=== PATIENT | male | born 1945 | race Caucasian/White ===

== ENCOUNTER 2024-04-09 16:52 | Inpatient (IN) | payer OTHER ==
[2024-04-09 19:22] VITALS: BMI 27.2
[2024-04-09] MEDS ORDERED: ALPRAZOLAM 0.25 MG TABLET PO PRN (19:36)
[2024-04-09] MEDS ORDERED: ALBUTEROL 2.5 MG/3 ML NEB SOL NEB PRN (19:36)
[2024-04-09] MEDS: FAMOTIDINE 20 MG TAB PO SCH (20:00)
[2024-04-09] MEDS ORDERED: MELATONIN 3 MG TABLET PO PRN (20:10)
[2024-04-09] MEDS ORDERED: SIMETHICONE 80 MG CHEWABLE TAB PO PRN (20:10)
[2024-04-09] MEDS: INSULIN REGULAR (HUMAN) 100 UNIT/ML SQ SCH (20:46)
[2024-04-09] MEDS: TOLVAPTAN 15 MG PO SCH (20:47)
[2024-04-09] MEDS: TRAZODONE 50 MG TABLET PO SCH (20:48)
[2024-04-09] MEDS: ROPINIROLE HCL 1 MG TAB PO SCH (20:48)
[2024-04-09] MEDS: ROSUVASTATIN 10 MG TAB PO SCH (20:49)
[2024-04-09] MEDS: HYDROCODONE/APAP 10/325 TAB PO PRN (20:49)
[2024-04-09] MEDS: HYDRALAZINE HCL 25 MG TABLET PO SCH (20:49)
[2024-04-09] MEDS: AMITRIPTYLINE 50 MG TAB PO SCH (20:49)
[2024-04-09] MEDS: APIXABAN 2.5 MG TABLET PO SCH (20:49)
[2024-04-09] MEDS ORDERED: ALPRAZOLAM 0.25 MG TABLET ONE (21:25)
[2024-04-09] MEDS: TAMSULOSIN 0.4 MG SR CAP PO SCH (21:40)
[2024-04-09] MEDS: ALPRAZOLAM 0.25 MG TABLET PO SCH (21:40)
[2024-04-09] MEDS ORDERED: DIPHENHYDRAMINE 25 MG TAB/CAP PO PRN (21:48)
[2024-04-10 04:19] LABS: Renal Epithelial <5 /HPF (None Seen); Specific Gravity 1.007 (1.005-1.030); Sqamous Epithelial None Seen /HPF (None Seen); Transitional Epithelial <5 /HPF (None Seen); Urine Bacteria None Seen /HPF (<20); Urine Bilirubin NEGATIVE (Negative); Urine Blood Negative (Negative); Urine Clarity Clear (Clear); Urine Color Light-Yellow (Yellow); Urine Culture Reflex Order NOT NEEDED; Urine Glucose NEGATIVE (Negative); Urine Ketones NEGATIVE (Negative); Urine Micro Reflex YN NO BILL MICROSCOPIC; Urine Nitrite NEGATIVE (Negative); Urine Protein NEGATIVE (Negative); Urine RBC <5 /HPF (None Seen); Urine Urobilinogen Normal (Normal); Urine WBC <5 /HPF (<5); Urine WBC Clump Rare /HPF (None Seen)
[2024-04-10 06:16] LABS: Absolute Basophils 0.1 K/uL (0-0.5); Absolute Eosinophils 1.9 K/uL (0-0.5); Absolute Lymphocytes (CBC) 1.2 K/uL (0.7-4.9); Absolute Monocytes 0.7 K/uL (0.1-1.3); Absolute Neutrophil 3.3 K/uL (1.8-8.0); Basophils % 1.2 % (0-1.3); Eosinophils % 26.1 % (0-4.4); Hematocrit 33.1 % (39.6-49.0); Hemoglobin 10.8 g/dL (13.6-17.9); Lymphocytes % 17.3 % (15.3-44.8); MCH 27.8 pg (27.0-35.0); MCHC 32.6 g/dL (32.0-36.0); MCV 85.3 fL (80-100); MPV 7.8 fL (7.6-11.3); Monocytes % 9.2 % (3.3-12.3); Neutrophils % 46.2 % (41.7-73.7); Platelets 335 thou/uL (152-406); RBC Red Blood Cell Count 3.88 M/uL (4.33-5.43); Red Cell Distribution Width 15.2 % (12.1-15.2)
[2024-04-10 06:49] LABS: Albumin 2.7 g/dL (3.4-5.0); Anion Gap 7.3 mEq/L (5.0-15.0); Magnesium 1.7 mg/dL (1.6-2.4); Potassium 3.3 mEq/L (3.5-5.1); Prealbumin 13.8 mg/dL (20-40)
[2024-04-10 07:38] LABS: Differential Total Cells Count 100; Segmented Neutrophils 52 % (40-80)
[2024-04-10 07:40] LABS: Atypical Lymphocytes 1 %; Band Neutrophils 1 % (0-1); Blood Morphology Comment NOT SEEN (NOT SEEN); Eosinophils 18 % (0-3); Lymphocytes 21 % (15-42); Monocytes 3 % (0-10); Platelet Estimate ADEQ
[2024-04-10] MEDS: PANTOPRAZOLE 40MG TABLET PO SCH (07:53)
[2024-04-10] MEDS: LEVOTHYROXINE SOD 0.125 MG TAB PO SCH (07:53)
[2024-04-10] MEDS ORDERED: modafiniL 100 MG TAB PO SCH (08:00)
[2024-04-10] MEDS: DONEPEZIL HCL 5 MG TAB PO SCH (08:24)
[2024-04-10] MEDS: POTASSIUM CL SA 10 MEQ TAB PO SCH (08:24)
[2024-04-10] MEDS: SODIUM CHLORIDE 1 GM TAB PO SCH (08:25)
[2024-04-10] MEDS: Multi-VIT(Centravite Senior) 1 TAB TAB PO SCH (08:25)
[2024-04-10] MEDS: FENOFIBRATE 160 MG TAB PO SCH (08:28)
[2024-04-10] MEDS: SPIRONOLACTONE 25 MG TABLET PO SCH (08:28)
[2024-04-10] MEDS: glipiZIDE 5 MG TAB PO SCH (08:28)
[2024-04-10] MEDS: MEMANTINE HCL 10 MG TABLET PO SCH (08:28)
[2024-04-10] MEDS: AMLODIPINE 5 MG TAB PO SCH (08:29)
[2024-04-10] MEDS: MAGNESIUM OXIDE 400 MG TAB PO SCH (08:29)
[2024-04-10] MEDS: MICONAZOLE 2% TOPICAL 15 GM TOP SCH (08:30)
[2024-04-10] MEDS: HYDRALAZINE HCL 25 MG TABLET PO SCH (09:34)
[2024-04-10] MEDS: modafiniL 100 MG TAB PO SCH (09:35)
[2024-04-10] MEDS: LIDOCAINE 4% PATCH TOP SCH (10:05)
[2024-04-10] MEDS: FLU (Fluarix Triv) TS24-25(6MOS UP)/PF 45 MCG/0.5 ML Syringe IM ONE (13:00)
[2024-04-10] MEDS ORDERED: hydrOXYzine HCL 25 MG TAB PO SCH (14:00)
[2024-04-10] MEDS: CALAMINE LOTION 180ML TOP SCH (14:22)
--- NOTE | 2024-04-10 16:30 | RAD REPORT ---
Exam:Knee Left 2 View HISTORY: Left knee pain FINDINGS: No fracture or dislocation seen Osteoporosis. Chondrocalcinosis. Vascular calcifications are present. No significant joint effusion seen. Limited two-view series obtained
[2024-04-10] MEDS ORDERED: GABAPENTIN 100 MG CAP PO SCH (20:00)
[2024-04-10] MEDS: ENSURE HIGH PROTEIN 237 ML CAN PO SCH (20:00)
[2024-04-10] MEDS: JUVEN PACKET PO SCH (20:00)
[2024-04-10] MEDS: GABAPENTIN 300 MG CAP PO SCH (20:22)
[2024-04-10] MEDS: DIPHENHYDRAMINE 25 MG TAB/CAP PO PRN (20:24)
--- NOTE | 2024-04-11 06:22 | HP ---
Date of Admission: 04/09/2024 Time Of Service: 1 p.m. Chief Complaint: "I had bowel problems, I broke my leg, I need to get better." History Of Present Illness: Mr. Adam is a 78-year-old patient who fell on 12/19/2023, injuring the left lower extremity and was found to have a tibiofibular fracture. He was admitted to [facility], where he had an external fixator placed for 2 weeks due to displ acement of the fracture. On 01/11/2024, he had an internal repair done. He was sent to SNF and whil e there, he progressed to weightbearing as tolerated with a walking boot. During time at SNF, he was noted to have constipation, abdominal distention, and pain. He was admitted to [facility] an d workup showed an ileus. He had abdominal distention in addition to his comorbidities, essential hy pertension, atrial fibrillation, hyponatremia. The General Surgery Service evaluated the patient and recommended conservative management. The patient had issues of dysphagia and evaluation by Speech, recommended a dysphagia diet versus PEG tube placement, and the patient was seen by Nephrology and al so had pressure ulcers addressed by Wound Care. He did have a PEG tube placed. He has course compli cated by of course a walking goals, lack of endurance and mobility and poor nutrition due to inadequa te PEG tube feedings with his dysphagia, nausea, vomiting, and diarrhea. Prior to the patient's fall , he was fully independent with mobility, activities of daily living, and ambulated without an assist ezio device. He performed his own cooking, cleaning, and drove occasionally without difficulty. Curr ently working hard to increase his tolerance, his balance, ambulation, coordination. Requires minimu m to contact guard assistance for those activities due to some pain in the left lower extremity and p ain in the knee. He uses a walker. He is now admitted to the inpatient rehabilitation unit. Discha rge is prior level of functioning and to reduce chance of rehospitalization. Medical And Surgical History: Hypertension, atrial fibrillation, PEG tube placement in March of t his year. Allergies: CURLY INHIBITORS, FENTANYL, LINEZOLID, RANOLAZINE, AND ZOLPIDEM. Imaging: Chest x-ray done on 04/02/2024 shows no acute abnormalities. Chest, abdomen, pelvis CT sca n on 04/02 shows diffuse distention of large and small bowel loops with gas, which could indicate an ileus. Moderate rectosigmoid fecal retention. KUB on 04/03 shows mild dilatation of the colon, air present throughout the nondilated small bowel. They may represent an adynamic ileus. Percutaneous t ube overlies the stomach, postsurgical changes in the lumbar spine. Small bowel x-ray on 04/04 shows normal small bowel series with overall normal small bowel caliber. Head CT scan on 04/06 shows no e vidence of acute intracranial abnormalities. Chest, abdomen, and pelvis CT done on 04/08 shows no ac [place] process, no adverse changes when compared to the study done on 04/02/2024. Medications: [place] 10/325 every 6 hours as needed, albuterol nebulizer 2.5 mg every 4 hours as neede d, Xanax 0.5 mg at bedtime, Elavil 50 mg at bedtime, Norvasc 5 mg daily, Eliquis 2.5 mg twice daily, calamine phenol lotion applied topically 3 times daily, diphenhydramine 25 mg at bedtime, donepezil 5 mg daily, Drisdol that is vitamin D 5000 units daily, TriCor 160 mg daily, gabapentin 300 mg twice d aily, glipizide 5 mg at breakfast, Apresoline 25 mg 3 times daily, Atarax 25 mg every 6 hours as need ed, Bud 1 packet twice daily, Synthroid 0.125 mg daily, magnesium oxide 400 mg twice daily, melaton in 3 mg at bedtime, Namenda 5 mg twice daily, modafinil 100 mg daily, Centrum Silver 1 tablet daily, melatonin 3 mg at night for insomnia, Ensure Enlive 237 mL twice daily, Protonix 40 mg daily, potassi um 20 mEq daily, Requip 4 mg at bedtime, Crestor 10 mg at bedtime, Mylicon 80 mg every 4 hours as nee ded, sodium chloride tablets 1 g twice daily, Aldactone 25 mg daily, Flomax 0.4 mg at bedtime, Ultram 50 mg 6 hours as needed, trazodone 50 mg at bedtime. Laboratory Studies: White blood cell count is 7.2, hemoglobin 10.8, hematocrit 33.1, platelets 335. Sodium 131, potassium 3.3, chloride 99, carbon dioxide 28, BUN 4, creatinine 0.86, glucose ranged fr om 106 to 173. Hemoglobin A1c is 7.5. Calcium 10.0, magnesium 1.7, albumin 2.7, prealbumin 13.8. U rinalysis is completely normal. A more recent chest x-ray just done at 4 p.m. today shows no fractur e or dislocation. He has osteoporosis, chondrocalcinosis. Vascular calcification present. No signi ficant joint effusion, limited 2 view series obtained as noted. Family History: Noncontributory. Social History: No alcohol, tobacco, or drug use. Review of Systems: There is some moderate pain in the left lower extremity where he has a tib-fib fracture, the leg is i n a boot. Some difficulty with not having regular bowel movements as of yet, and also he does have a rash in the back. There is some itching, red areas blanchable, nonconfluent flat rash and itching n oted. He does have Atarax on board for the itching and on calamine lotion by itself. The calamine with phenol may cause some burning and worsening itching and that may be held at this point . Otherwise, on review of systems, no other positives on the systems review. Current Level Of Functioning: Level of functioning: Supervision for eating, oral hygiene. Moderate assistance for toileting, showering. Contact guard assistance for upper body dressing. Moderate as sistance for lower body dressing and donning and doffing footwear. Supervision for rolling left-to-r ight, for sit to lying, transferring and lying to sitting on a sliding board, supervision. For sit-t o-stand, he is supervision. For transfer from chair to bed and back, partial to moderate assistance. Toilet transfer, partial to moderate assistance. Ambulation, partial to moderate assistance. He d id ambulate 15 feet with a rolling walker. Physical Examination: Vital Signs: Blood pressure 144/80, pulse 94, respiratory rate 16, temperature 97.5, O2 saturation 9 5%. Mr. Adam also had orthostatics where lying 144/80, pulse 94; sitting 140/80, pulse 111; and standing 95/68 pulse 116. He was mildly symptomatic. HEENT: Head is normocephalic, atraumatic. Sclerae anicteric. Oropharynx is moist. Neck: Supple. Chest: Clear. Heart: Regular. Extremities: The left leg is in a boot. He does have some pain in the knees. There is reportedly s ome degeneration there. Worse in the left knee. His left knee x-ray was reported on above. Rehab And Medical Assessment And Plan: Mr. Adam is a 78-year-old patient admitted to the [facility] ent rehabilitation unit with impairment category 20, miscellaneous. His impairment group code is 16, debility, noncardiac, nonpulmonary. Etiologic diagnosis, ileus. His comorbidities are atrial fibri llation, decreased mobility, decreased physical functioning, hypertension, hyponatremia, oropharyngea l dysphagia with PEG tube placement, elevated blood sugars, potentially diabetes, of course tib-fib f racture . Plan: He will have physical and occupational therapy 3 hours a day, 5/7 days if need be. Speech for 0.5 hours, 5/7 days. He has multiple medications for comorbid conditions, which do include trazodone, melatonin for his in somnia, Flomax for urinary retention, tramadol for pain along with [place] and gabapentin, his glipizid e for diabetes mellitus, Drisdol for low vitamin D, Aricept for cognitive issues. For his itching, lesly smith has the Atarax and Benadryl at night, Eliquis for DVT prophylaxis, Norvasc for hypertension control , Xanax for anxiety, albuterol nebulizer as needed for shortness of breath. Comorbidities That Are Impacting Rehabilitation: Mr. Adam course has the left hip fracture and he is in the boot. Still has some difficulty with mobilizing, transferring, and gait coordination an d has to work hard to improve those factors. His blood sugars are not very controlled, but still req uire daily attention. He has significant orthostasis as noted and will have appropriate right-sided EMPERATRIZ hose, abdominal binder also in place and will have strong fall precautions as he is at high risk of falls, so gait belt and ambulate with a wheelchair behind as he uses a rolling walker. Rehab Specific Plan: Mr. Adam will have physical therapy for 3 hours a day, 5/7 days to improve his ability to transfer from his bed to chair to a walker to the Rollator and wheelchair, to use ada ptive equipment such as a director of recreation therapy to the leg elevator and help with pulling up clothes as appropriate . He will work on being able to mobilize a wheelchair 250 feet, to go up and down at least 5 steps w ith bilateral handrails and to ambulate with a rolling walker 250 feet and to perform cognitive funct ioning independently. Mr. Adam has a good understanding of the process of admission to the inpatient rehabilitation [facility] and how he will benefit from physical and occupational therapy. He will have 24 hours a day, 7 days a week skilled rehabilitation nursing, daily physician evaluation and management, and social [facility] and [facility] for his discharge planning, home equipment, and followup therapy al bonifacio with physician followup. If need be, additional help will be provided or requested from the hosp italist service and the Orthopedic service. Barriers To Discharge: Mr. Adam had some issues with balance, coordination, and had some initia l failure to thrive as he was doing therapy; however, he will work hard and aggressive therapy admini stered along with management of his comorbid conditions to help him to be able to return home, but in the event that he is unable to be independent and return to his prior level where he was fully indep endent without restriction, he may have to go to senior living for a stay prior to going home. Length Of Stay: 12 days. Disposition: Expected to be home with continuing therapy via Home Health. Prognosis: Good. Code Status: Full code. Rehab Specific Goals: 1.Become independent upper and lower body dressing and donning and doffing of footwear. 2.Independently transfer from bed to chair, to toilet, to shower. 3.Independently ambulate 250 feet with a rolling walker. 4.Independently propel a wheelchair 250 feet. 5.Independently go up and down 10 steps with bilateral handrails. 6.Independently perform cognitive functioning. 7.The above goals were reviewed with Mr. Adam and he is in agreement. By signing this document, I acknowledge I personally performed a full examination on Mr. Adam no later than 24 hours after his admission to the inpatient rehabilitation facility and determined that he is able to tolerate the above course of treatment at an intensive level for a reasonable period o f time. A detailed individualized plan of care for him will be completed by hospital day 4 based on the preadmission screen, history and physical, and therapy evaluations. ALEXIA Voice ID: [id number]
[2024-04-11 06:27] LABS: Anion Gap 9.9 mEq/L (5.0-15.0); Magnesium 1.6 mg/dL (1.6-2.4); Potassium 3.9 mEq/L (3.5-5.1)
[2024-04-11] MEDS: PANTOPRAZOLE 40MG TABLET PO SCH (07:00)
[2024-04-11] MEDS ORDERED: LIDOCAINE 4% PATCH TOP SCH (08:00)
[2024-04-11] MEDS: TRAMADOL HCL 50 MG TAB PO PRN (10:10)
[2024-04-11] MEDS: HYDROCORTISONE 1 % CREAM 30GM TOP SCH (11:22)
[2024-04-11] MEDS: NA CHLORIDE 0.9% 1,000 ML IV SCH (15:55)
[2024-04-11] MEDS: MAGNESIUM OXIDE 400 MG TAB PO SCH (20:00)
[2024-04-11] MEDS: HYDRALAZINE HCL 25 MG TABLET PO SCH (20:08)
[2024-04-11] MEDS: MEGESTROL 40 MG TAB PO SCH (20:10)
[2024-04-11] MEDS: DOCUSATE NA/SENNA CONC 1 TAB PO PRN (21:48)
[2024-04-11] MEDS: ONDANSETRON 4 MG (ODT) TAB PO PRN (21:49)
--- NOTE | 2024-04-12 01:10 | PN ---
Subjective: Mr. Adam notes that the left foot pain where there is a boot from the fracture does produce moderate amount of pain with mobilization. It is determined that the boot at this point may be removed as it is around 3 months since injury and fracture and he is able to remove the boots and wear regular shoes and that will be done. Objective: Mild pain in the left lower extremity. No fevers, chills. Otherwise, no nausea, vomitin g. Mild difficulty with sleep, but that is better. Bowel movements are better per the patient. Physical Examination: Vital Signs: Blood pressure 122/74, pulse 85, respiratory rate of 16, temperature is 97.8, oxygen sa turation 96%. Earlier on yesterday, he had orthostatics done; lying 144/80, pulse 94; sitting 140/80 , pulse 111; standing 95/68, pulse 116. His pressure support medication, the midodrine was added for the morning. HEENT: Otherwise, again, he is normocephalic, atraumatic. Sclerae anicteric. Oropharynx pink and m oist. Neck: Supple. Chest: Clear. EXTREMITIES: The left lower extremity, no significant cyanosis or edema, on the right as well. The boot again removed from the left lower extremity, regular shoes to be worn. Laboratory Studies: Blood sugars ranged from 147 to 166. X-ray Imaging: No new x-rays or imaging. Medications: Medications had been reviewed. His Norvasc is now 5 mg daily. Other medications are c ontinued including [place] 10/325 every 6 hours as needed, albuterol 2.5 mg every 4 hours as needed for shortness of breath, alprazolam 0.25 mg at bedtime for anxiety, Elavil 50 mg at bedtime, Eliquis 2.5 mg twice daily, Aricept 5 mg daily, Benadryl for itching, which is improving his itching, TriCor 160 mg daily, vitamin D 50,000 units weekly, gabapentin 300 mg twice daily, Glucotrol 5 mg with breakfas t, Apresoline 25 mg twice daily, now has the hydrocortisone cream 1% applied topically 3 times daily, which is helping with itching in the back, Atarax 25 mg every 6 hours as needed, Synthroid 0.125 mg daily, lidocaine patch apply 2 patches daily around the knee and back, magnesium oxide 800 mg twice d aily, Megace 400 mg twice daily, melatonin 3 mg at bedtime, Namenda 5 mg twice daily, midodrine 5 mg daily, modafinil 100 mg daily, Centrum Silver 1 tablet daily, Ensure Enlive 237 mL twice daily, Echo nix 40 mg daily, potassium 20 mEq daily, Requip 4 mg at bedtime, Crestor 10 mg at bedtime, Mylicon 80 mg every 4 hours as needed, sodium chloride 1 g twice daily. He is receiving some normal saline at 75 cc an hour because of the mild dehydration. He does have Aldactone 25 mg daily, Flomax 0.4 mg at bedtime, Ultram 50 mg every 6 hours as needed, and trazodone 50 mg at bedtime. Progress Made With Physical, Occupational, And Speech Therapy: With physical therapy today, performe d [id number] transfers with standby assistance, multiple [id number] transfers also done. With g ait, he ambulated 5 feet and another 4 steps and 6 steps with standby assistance. Gait was limited d ue to the left knee pain and again pain medications were adjusted. Wheelchair mobilization covered a t 250 feet with standby assistance. With occupational therapy, Mr. Adam tolerated upper body st rengthening, endurance training using 2 pounds and down, again with mild pain in the left shoulder du ring overhead movement. Toilet transfers done with contact guard assistance using the grab bar from wheelchair to mat transfer, contact guard assistance. With speech, long-term goals were to tolerate a minced and moist diet and thin liquids without overt signs of aspiration. Work on improving memory , executive functioning from [id number] assistance. It is noted the patient does have a PEG tub e, but food is not provided by PEG tube. There was some mild issues with swallowing. He is working very hard with speech pathology to improve that. He is able to take pills with some applesauce consis tency and speech pathology is working to make adjustments as appropriate. Assessment: Mr. Adam is a 78-year-old patient in the rehabilitation unit with an ileus. He has had a PEG tube placed. He has debility. He has a boot in the left lower extremity that is going to be removed. He has decreased physical functioning, decreased mobility, atrial fibrillation, hyperte nsion, hyponatremia, hypothyroidism, and the tib-fib fracture as noted with the boot in place. Plan: Continue with physical, occupational and speech therapy for 3.5 hours, 5 of 7 days. His comor bid conditions are addressed by continuing the list of medicines which include the albuterol nebulize r for shortness of breath, Atarax, and Benadryl along with hydrocortisone for the rash and itching on his back and chest and the left boot will be removed and regular shoes in place. Aricept for his co gnitive issues. [place] and gabapentin for pain, glipizide for diabetes mellitus, has vitamin D addres sed with replacement and Flomax for his urinary retention. He has trazodone for insomnia along with the melatonin. LB/MODL Voice ID: [id number] Report ID: [id number]
[2024-04-12 06:48] LABS: Anion Gap 8.3 mEq/L (5.0-15.0); Magnesium 1.6 mg/dL (1.6-2.4); Potassium 4.3 mEq/L (3.5-5.1)
[2024-04-12] MEDS: MIDODRINE HCL 5 MG TABLET PO SCH (08:30)
--- NOTE | 2024-04-12 09:17 | P.RH.PN ---
Estimated Length of Stay: 12 Expected Discharge Date: 04/19/24 Discharge Disposition Plan: Home Family Support: Yes Senior Care Goal: Mobility, Transfers, Self Care Vital Signs: Last Vital Signs Temp 97.1 F 04/12/24 08:00 Pulse 83 04/12/24 08:00 Resp 18 04/12/24 08:00 BP 119/66 04/12/24 08:00 Pulse Ox 98 04/12/24 08:00 Laboratory: Laboratory Last Values WBC 7.20 thou/uL (4.3-10.9) 04/10/24 05:15 RBC 3.88 M/uL (4.33-5.43) L 04/10/24 05:15 Hgb 10.8 g/dL (13.6-17.9) L 04/10/24 05:15 Hct 33.1 % (39.6-49.0) L 04/10/24 05:15 MCV 85.3 fL (80-100) 04/10/24 05:15 MCH 27.8 pg (27.0-35.0) 04/10/24 05:15 MCHC 32.6 g/dL (32.0-36.0) 04/10/24 05:15 RDW 15.2 % (12.1-15.2) 04/10/24 05:15 Plt Count 335 thou/uL (152-406) 04/10/24 05:15 MPV 7.8 fL (7.6-11.3) 04/10/24 05:15 Neutrophils % 46.2 % (41.7-73.7) 04/10/24 05:15 Lymphocytes % 17.3 % (15.3-44.8) 04/10/24 05:15 Monocytes % 9.2 % (3.3-12.3) 04/10/24 05:15 Eosinophils % 26.1 % (0-4.4) H 04/10/24 05:15 Basophils % 1.2 % (0-1.3) 04/10/24 05:15 Absolute Neutrophils 3.3 K/uL (1.8-8.0) 04/10/24 05:15 Segmented Neutrophils 52 % (40-80) 04/10/24 05:15 Band Neutrophils 1 % (0-1) 04/10/24 05:15 Absolute Lymphocytes 1.2 K/uL (0.7-4.9) 04/10/24 05:15 Lymphocytes 21 % (15-42) 04/10/24 05:15 Monocytes 3 % (0-10) 04/10/24 05:15 Absolute Monocytes 0.7 K/uL (0.1-1.3) 04/10/24 05:15 Eosinophils 18 % (0-3) H 04/10/24 05:15 Absolute Eosinophils 1.9 K/uL (0-0.5) H 04/10/24 05:15 Basophils 1 % (0-1) 04/10/24 05:15 Absolute Basophils 0.1 K/uL (0-0.5) 04/10/24 05:15 Atypical Lymphocytes 1 % 04/10/24 05:15 Platelet Estimate Adeq 04/10/24 05:15 Morphology Comment Not seen (NOT SEEN) 04/10/24 05:15 Sodium 134 mEq/L (136-145) L 04/12/24 05:27 Potassium 4.3 mEq/L (3.5-5.1) 04/12/24 05:27 Chloride 104 mEq/L (98-107) 04/12/24 05:27 Carbon Dioxide 26 mEq/L (21-32) 04/12/24 05:27 Anion Gap 8.3 mEq/L (5.0-15.0) 04/12/24 05:27 BUN 16 mg/dL (7-18) 04/12/24 05:27 Creatinine 0.85 mg/dL (0.70-1.30) 04/12/24 05:27 Est GFR (CKD-EPI) 89 ml/min (=/>90) L 04/12/24 05:27 Glucose 130 mg/dL (74-106) H 04/12/24 05:27 POC Glucose 139 mg/dL (65-120) H 04/12/24 06:35 Hemoglobin A1c 7.5 % (4.2-6.3) H 04/10/24 05:15 Calcium 10.1 mg/dL (8.5-10.1) 04/12/24 05:27 Magnesium 1.6 mg/dL (1.6-2.4) 04/12/24 05:27 Albumin 2.7 g/dL (3.4-5.0) L 04/10/24 05:15 Prealbumin 13.8 mg/dL (20-40) L 04/10/24 05:15 Urine Color Light-yellow (Yellow) 04/10/24 04:00 Urine Clarity Clear (Clear) 04/10/24 04:00 Urine pH 7.0 (5.0-7.0) 04/10/24 04:00 Ur Specific [place] 1.007 (1.005-1.030) 04/10/24 04:00 Glucose (UA)(Auto) Negative (Negative) 04/10/24 04:00 Urine Ketones Negative (Negative) 04/10/24 04:00 Urine Blood Negative (Negative) 04/10/24 04:00 Urine Nitrite Negative (Negative) 04/10/24 04:00 Urine Bilirubin Negative (Negative) 04/10/24 04:00 Urine Urobilinogen Normal (Normal) 04/10/24 04:00 Ur Leukocyte Esterase Negative Temitope/uL (Negative) 04/10/24 04:00 Urine RBC <5 /HPF (None Seen) 04/10/24 04:00 Urine WBC <5 /HPF (<5) 04/10/24 04:00 Urine WBC Clumps Rare /HPF (None Seen) 04/10/24 04:00 Ur Squamous Epith Cells None seen /HPF (None Seen) 04/10/24 04:00 U Non-Squamous Epi Cells <5 /HPF (None Seen) 04/10/24 04:00 Ur Transition Epith Cell <5 /HPF (None Seen) 04/10/24 04:00 Ur Renal Epithelial Cell <5 /HPF (None Seen) 04/10/24 04:00 Amorphous Crystals Trace /HPF (None Seen) 04/10/24 04:00 Urine Bacteria None seen /HPF (<20) 04/10/24 04:00 Urine Culture Reflexed Not needed 04/10/24 04:00 Urine Total Protein Negative (Negative) 04/10/24 04:00 Weight: 186 lb 9.6 oz Wound Present: No Negative Pressure Wound Therapy Present: No Physician Update: Labs reviewed and are stable. Rash and itch is better. Stage I on sacrum. Has orthostatic drop in blood pressure. SLUMS 12 with generalized cognitive deficits. Bed mobility is supervision. Severe knee pain. Medications adjusted. WC 250'. Improved urination. Summary: Patient's care plan and skilled nursing goals have been reviewed and revised as necessary. Please see the Rehabilitation Signature page for all necessary si gnatures.
--- NOTE | 2024-04-12 12:45 | RAD REPORT ---
EXAMINATION: ONE VIEW CHEST XR CLINICAL INDICATION: Male, 78 years old.,sob TECHNIQUE: Frontal chest projection is submitted. Examination is limited by patient positioning and t echnique. COMPARISON: 04/02/2024 FINDINGS: The lungs are well inflated and clear. No pneumothorax or sizable effusion. The heart is normal in s ize. Mediastinal contours are unremarkable. Rib deformities again seen on the right. Single-lead left chest wall pacer/AICD in place IMPRESSION: No acute intrathoracic abnormalities.
[2024-04-12] MEDS: Magnesium Sulfate 2gm IVPB 2 G/50 ML BAG IV ONE (14:01)
[2024-04-12] MEDS: TOLVAPTAN 15 MG PO SCH (20:48)
[2024-04-13] MEDS: DRISDOL (VITAMIN D=ERGOCALCIFEROL) 50000 UNIT CAP PO SCH (08:44)
[2024-04-14 05:36] LABS: Absolute Basophils 0.1 K/uL (0-0.5); Absolute Eosinophils 1.6 K/uL (0-0.5); Absolute Lymphocytes (CBC) 1.2 K/uL (0.7-4.9); Absolute Monocytes 0.6 K/uL (0.1-1.3); Basophils % 1.3 % (0-1.3); Eosinophils % 21.7 % (0-4.4); Hematocrit 34.7 % (39.6-49.0); Hemoglobin 11.7 g/dL (13.6-17.9); Lymphocytes % 15.3 % (15.3-44.8); MCH 28.5 pg (27.0-35.0); MCHC 33.6 g/dL (32.0-36.0); MCV 84.6 fL (80-100); MPV 7.3 fL (7.6-11.3); Monocytes % 8.4 % (3.3-12.3); Neutrophils % 53.3 % (41.7-73.7); Nucleated Red Blood Cells % 0.1 % (0-0); Platelets 374 thou/uL (152-406); Red Cell Distribution Width 15.9 % (12.1-15.2)
[2024-04-14 05:48] LABS: Anion Gap 8.2 mEq/L (5.0-15.0); Potassium 4.2 mEq/L (3.5-5.1)
[2024-04-14 07:57] LABS: Differential Total Cells Count 100; Eosinophils 20 % (0-3); Lymphocytes 14 % (15-42); Monocytes 6 % (0-10); Segmented Neutrophils 60 % (40-80)
[2024-04-14 07:58] LABS: Blood Morphology Comment NOT SEEN (NOT SEEN); Platelet Estimate ADEQ
[2024-04-14] MEDS: GABAPENTIN 300 MG CAP PO SCH (20:27)
--- NOTE | 2024-04-15 23:52 | PN ---
Date of Progress Note: 04/15/2024 Time Of Service: 1:15 p.m. Subjective: Mr. Adam is doing very well. Does have some mild pain in the left lower extremity, but still doing very well with respect to that. Able to mobilize well. Her boot has been removed. No evidence of ongoing ileus and he is doing well. Objective: Mild pain in left lower extremity with mobilization; otherwise mild arthralgias, myalgias , but no fevers, chills. No nausea, vomiting. No other active issues. Physical Examination: Vital Signs: Blood pressure is, in terms orthostatics, 119/77 and pulse of 80 while lying; sitting 1 33/71, pulse of 98 while sitting; and while standing 95/63, pulse of 103, mildly symptomatic. HEENT: He is otherwise normocephalic, atraumatic. Sclerae are anicteric. Oropharynx pink and moist . Neck: Supple. Chest: Clear. Heart: Regular. Extremities: No significant edema, cyanosis, or clubbing noted. Laboratory Studies: White blood cell count 7.6, hemoglobin 11.7, platelets 374. Blood glucose range d from 104-130. Sodium 133, potassium 4.2, chloride 102, carbon dioxide 27, BUN 15, creatinine 0.89, calcium slightly elevated today to 10.8. Urinalysis from the 20s is normal. No new x-rays or imagi ng done. Medications: His medications have been reviewed. He has on board gabapentin increased to 300 mg twi ce daily to help with the pain in the left lower extremity. Otherwise, tramadol has been scheduled a t 50 mg in morning prior to therapy to help manage the pain in the left lower extremity. Progress Made With Physical And Occupational Therapy: With his physical therapy today, he did supine -to-sit transfers independently, perform multiple [id number]-td-[id number] transfers independently. He ambulat ed 10 feet and 25 feet twice and then 50 feet independently with a rolling walker. Mobilized a wheel chair 375 feet independently. With his occupational therapy today required self propelled wheelchair from room to gym, multiple rest breaks done, but still done independently. Did 10 minutes of bilate ral upper extremity aerobic exercise. With speech, he was unable to recall any of 3 pictures after 3 minutes even with memory strategies pr ovided. He did name 5 of 10 members of concrete category. He did appear confused as to where he wou ld be discharging to after leaving inpatient rehab. The patient has some significant cognitive defic its. Mr. Adam is doing fairly well with physical and occupational therapy. Still has significant cog nitive deficits about safety awareness and short-term memory and planning. He will likely require 24 hours 7 days a week supervision after his discharge. Assessment: Mr. Adam is a 78-year-old patient in the rehabilitation unit with ileus, which is r esolving well. He has decreased mobility, decreased physical functioning. He has a PEG tube placed and the PEG tube is not being used orally, all of his nutrients are done orally. He has atrial fibri llation, hypertension, hyponatremia, hypothyroidism, decreased mobility, decreased physical functioni ng, tib-fib fracture, and left lower extremity boot has been removed. Plan: 1.Continue with physical, occupational, and speech therapy 3.5 hours, 5 out of 7 days. 2.He will continue with all comorbid condition medications including Atarax and Benadryl for some it vero along with hydrocortisone, has long resolved. He has regular boot in place. He has Aricept fo r his dementia, gabapentin for pain, glipizide for diabetes mellitus, vitamin D replacement, Flomax f or urinary retention, trazodone for his insomnia. LB/MODL Voice ID: [id number] Report ID: [id number]
[2024-04-16 06:19] LABS: Anion Gap 10.9 mEq/L (5.0-15.0); Potassium 3.9 mEq/L (3.5-5.1)
[2024-04-16] MEDS: TRAMADOL HCL 50 MG TAB PO SCH (09:41)
[2024-04-16] MEDS: hydrOXYzine HCL 25 MG TAB PO SCH (14:22)
[2024-04-16] MEDS: predniSONE 5 MG TAB PO SCH (14:22)
--- NOTE | 2024-04-16 23:11 | PN ---
Date of Progress Note: 04/16/2024 Time Of Service: 1:15 p.m. Subjective: Mr. Adam is doing well, very happy with therapy so far, ready to be discharged in t he morning, mobilizing very well, and having good bowel movements without any issues. Left lower ext remity pain has mitigated adequately. Objective: No fevers, chills, nausea, vomiting, myalgias, arthralgias, rash. No other complaints. Physical Examination: Vital Signs: Blood pressure with orthostasis is 138/68, pulse 86 and while sitting 140/71, pulse 76, and while standing 86/58, pulse 101. General: Mr. Adam again is in between the therapy sessions, resting comfortably. HEENT: He is normocephalic, atraumatic. Sclerae anicteric. Oropharynx pink and moist. Neck: Supple. Chest: Clear. Extremities: No significant edema or cyanosis in the lower extremities. Some pain in the left lower extremity, where he did have a fracture and boot that has not been removed and is doing very well in terms of that. Laboratory Studies: Blood sugars ranged from 139 to 154. X-ray/imaging: No new x-rays or imaging. Medications: Medications have been reviewed. He is on Atarax. He did have complaints of lots of it vero in the back and lower hip area as the patient's itching has been present for perhaps several ye ars, but may have worsened more recently. He does have the Atarax now scheduled, it was initially pl aced, but now only as p.r.n., but now Atarax 25 mg every 6 hours as scheduled. He does have hydrocor tisone 1% cream apply topically and the area that has a rash in the back that has cleared, but still has some persistent itching and is noted that is being addressed. He was instructed he may require e valuation by a clothing sorter potentially to determine if he is allergic to antigens that may be treat ed in response. In addition, discussed that he may see the glass bender, Dr. Abebe, for possible further evaluation and treatment. He is continued on Synthroid, Bud, lidocaine patch, ma gnesium, Megace for poor appetite, melatonin for insomnia, Namenda for dementia, midodrine for pressu re support, Provigil for his energy, Centrum Silver on board, Ensure Enlive, Protonix, Zofran, starte d also on 5 mg prednisone for the itching. He does have Requip for restless legs, Crestor at bedtime , simethicone for gas, and receiving Aldactone for fluid management, Flomax for urinary retention, tr amadol for pain, and Desyrel for insomnia. Progress Made With Physical And Occupational Therapy: Today with physical therapy, njcjai-kt-xig tra nsfers done independently, multiple eru-mi-wmlwf transfers done independently. He was up and down 5 steps with bilateral handrails with contact guard assistance, mobilized a wheelchair 250 feet and 125 feet with independence. Regarding occupational therapy, independent with bathing, upper and lower b juan jose dressing, and footwear. Independent in the shower with holding onto grab bars. With speech, he was unable to recall any of 3 words during a delayed memory task. Did not attempt to try to recall w ords quickly, said "I do not know." However, convergent naming used during an organizational task wa s performed with 90% accuracy for abstract concepts. Mr. Adam is a 78-year-old patient in the rehabilitation unit with ileus. He has comorbidities o f generalized itching that has been chronic, has issues of significant orthostatic hypotension, and m ore recent left lower extremity tib-fib fracture now that is out of the boot. He is, however, doing very well with his physical and occupational therapy, but not as good with his speech therapy. He do es have issues of memory, short-term memory in particular, and safety awareness. Assessment: Mr. Adam is a 78-year-old patient in the rehabilitation unit with ileus. Again, mu ltiple comorbidities of decreased mobility, decreased physical functioning, and a PEG tube placed. H sarah has atrial fibrillation, hypertension, hyponatremia, hypothyroidism, generalized itching, and ortho stasis. Plan: Continue with physical, occupational, and speech therapy for 3.5 hours, 5 of 7 days when he is discharged. Continue Atarax, Benadryl added also, hydrocortisone, and steroids. He has Aricept for dementia, gabapentin for neuropathic pain, glipizide for diabetes mellitus, Flomax for urinary reten tion, trazodone for insomnia. The plan is for him to be discharged and follow up with orthopedic marnie bogdan, follow up with clothing sorter and glass bender locally. OSCAR/NATANAEL Voice ID: [id number] Report ID: [id number]
[2024-04-17 06:49] VITALS: TEMP 97
[2024-04-17 12:24] VITALS: BP 132/61
[2024-04-17] MEDS ORDERED: hydrOXYzine HCL 25 MG TAB PO PRN (14:13)
--- NOTE | 2024-04-17 21:38 | PN ---
Subjective: Mr. Adam is doing well, ready for discharge home, waiting for family to come pick h im up, very happy with therapy today and would be glad to go home and continue therapy. Objective: No fevers, chills, nausea, vomiting, myalgias, arthralgias, or complaints. Physical Examination: Vital Signs: Blood pressure is 137/61, pulse 85, respiratory rate 16, temperature 97.5, oxygen satur ation 94%. General: Mr. Adam again is doing very well. HEENT: He is normocephalic, atraumatic. Sclerae anicteric. Oropharynx pink, moist. Neck: Supple. Chest: Clear. Extremities: The lower extremity on the left side where the boot had been removed is doing very well in terms of just using regular footwear. Laboratory Studies: Blood sugars today ranged 168 to 209. X-ray/imaging: No new x-rays or imaging. Medications: Medications have been reviewed and are unchanged. Progress Made With Physical, Occupational, And Speech Therapy: Today with physical therapy, he was a ble to use a rolling walker to ambulate 25 feet and 30 feet independently, perform wheelchair mobiliz ation 150 feet and 125 feet independently, [id number]-[id number] transfers done independently. With his occup ational therapy, he was able to self propel a wheelchair from room to gym independently. Did multipl e exercises in the triceps, biceps with Thera-Band very well, transferred very well. With speech, he demonstrated improvement in his cognitive communication skills by his outcome scores. He did improv e his BIMs from 9 to 13 and his SLUMS from 12 to 14. Did meet 2 of 3 short-term goals and wished to be discharged with recommendation to continue all therapy, physical, occupational, and speech therapy . Assessment: Mr. Adam is a 78-year-old patient in the rehabilitation unit with an ileus which carias s resolved. He has decreased mobility, decreased physical functioning. PEG in place, it is not bein g used. He is orally fed. He has atrial fibrillation, hypertension, hyponatremia, hypothyroidism, a nd generalized itching, which is improved and orthostasis, again improved. Plan: He will continue with all therapy until he is discharged later today. Continue with Atarax, B enadryl, cortisone. He does have small course of steroids, Aricept for dementia, gabapentin for neur opathic pain, glipizide for diabetes, Flomax for urinary retention. He is to follow up with orthoped ic surgeon, pleating supervisor, and development expert after discharge. ALEXIA Voice ID: [id number] Report ID: [id number]
[2024-04-18] MEDS ORDERED: predniSONE 5 MG TAB PO SCH (08:00)
== END 2024-04-17 17:55 | disposition home health service (06) | DRG 948 ==
LOC: 5TH 19:00
PROVIDERS: ADMIT Psychiatry & Neurology Neurology with Special Qualifications in Child Neurology; ATTEND Psychiatry & Neurology Neurology with Special Qualifications in Child Neurology
DX: R53.81 Other malaise (principal); K56.7 Ileus, unspecified; E87.1 Hypo-osmolality and hyponatremia; I10 Essential (primary) hypertension; I48.91 Unspecified atrial fibrillation; R13.12 Dysphagia, oropharyngeal phase; L29.9 Pruritus, unspecified; Z93.1 Gastrostomy status; S82.202D Unspecified fracture of shaft of left tibia, subsequent encounter for closed fracture with routine healing; S82.402D Unspecified fracture of shaft of left fibula, subsequent encounter for closed fracture with routine healing
CPT/HCPCS: 36415; 71045; 80048; 81001; 82040; 82947; 83036; 83735; 84134; 85025; 87086; 87088; 92523; 92610; 97110; 97116; 97129; 97163; 97165; 97530; 97542; J2003; J3475; J7030; J7512; Q0162